=== PATIENT | female | born 1930 | race Caucasian/White ===

== ENCOUNTER 2017-11-09 10:27 | Inpatient (IN) | payer MEDICARE ==
[2017-11-09] MEDS: Carvedilol 3.125 MG TAB PO SCH (20:42)
[2017-11-10] MEDS: traMADol HCl 50 MG TAB PO PRN ×2 (01:05→22:32)
--- NOTE | 2017-11-10 03:04 | HP ---
DATE OF ADMISSION: 11/09/2017 ATTENDING: Nela Angulo M.D. PREVIOUS PRIMARY CARE PHYSICIAN: in [place]. NEW PRIMARY CARE PHYSICIAN: Pending appointment with Dr. Briones in [place]. ORTHOPEDICS: Dr. Behzad Jarquin in [place] [facility] [place]. REASON FOR ADMISSION: Skilled Rehabilitation in [place] [facility] post- surgery. HISTORY OF PRESENT ILLNESS: This is an 87-year-old female who was initially admitted to [facility] in [place] on 10/24/2017 after several falls and reported left ankle pain. She was diagnosed with displaced fracture tuberosity of the left calcaneus. The patient underwent repair. The patient was subsequently transferred to [facility] on 10/25/2017 and was seen by Dr. Clark. She was medically managed for closed displaced fracture of tuberosity of the left calcaneus status post fall. Of note, the patient also reports multiple pain mostly of her right knee, which she reported has a severe osteoarthritis. The patient is also complaining of left foot pain, lower extremity pain, moderate swelling in the foot and ankle, decreased range of motion to the left foot and ankle. She has been using rolling walker at home prior to admission. The patient has been nonweightbearing on her left lower extremity. She completed her inpatient rehabilitation from [facility], but deemed to be generally weak with decreased strength and endurance. She remains to be at risk for fall, thus she was transferred to [facility] to continue therapy prior to going back to the home environment The patient told me upon admission that she is not safe to return home as she needs some more strengthening of her arms and right lower extremity. She went back to Ortho yesterday for post-op followup and was allowed to start weight toe to touch to transfer in the left lower extremities and was prescribed with left boot that she needs to wear all the time except when she is sleeping.No other issues reported by patient at this time. There was no family members present on assessment. PAST MEDICAL HISTORY: CAD, CHF, depression, hypertension, osteoarthritis, urinary incontinence, history of MD. Other medical history includes hepatitis, history of blood transfusion, GI bleed, and SOB. PAST SURGICAL HISTORY: Appendectomy, cataract surgery, PTCA/stent, tonsillectomy and other surgical history include right ankle fracture surgery, bunionectomy, left closed shoulder manipulation and skin cancer excision. ALLERGIES: SULFA, reaction none documented. MEDICATIONS: Carvedilol 3.125 mg p.o. b.i.d., Vitamin D3 of 2000 units p.o. daily, fluoxetine 20 mg p.o. daily, furosemide 20 mg p.o. daily, Levaquin 250 mg p.o. daily, losartan 50 mg p.o. daily, potassium chloride 10 mEq p.o. daily, tramadol 50 mg p.o. q.i.d. p.r.n. for pain. SOCIAL HISTORY: Denies any history of tobacco, drug or EtOH use. Living condition: The patient lives initially by herself in [place], now currently lives with her daughter in one mihir home with a ramp to enter. The patient was ambulating independently with rolling walker prior to this hospitalization. She needs assistance with ADLs and dressing. She was previously receiving home health services from [facility]. An aide helped her with bathing twice weekly and patient had been set up to start PT with home health, but had not been done yet. CURRENT ADLS: The patient is nonweightbearing of left lower extremity except for toe touch for transfer. She is not in any pain. The patient is minimum assist for bed mobility and moderate assist for ADLs and dressing. The patient reports that she is unable to stand secondary to arthritis in her right knee as well as her inability to maintain her nonweightbearing status in left lower extremity. She has not been ambulatory since surgery on 10/24/2017. The patient was able to sit with standby assist per records Per therapy notes, patient has remains to have decreased left lower extremity strength, decreased endurance, decreased balance and gait deviations. Her primary space controller which is her daughter is also in a wheelchair has limited ability to take care of her at home. Otherwise, she has a highly supportive family. REVIEW OF SYSTEMS: General: Denies fever or chills. Reports fatigue and general weakness. HEENT: No acute visual changes or hearing changes. Respiratory: No shortness of breath, pain with breathing, sputum production, bloody sputum, or wheezing. Cardiac: No chest pain, dyspnea on exertion, paroxysmal nocturnal dyspnea. Genitourinary: No dysuria, hematuria, frequency , urgency. Reports intermittent incontinence secondary to gait abnormality, not making it on time. Musculoskeletal: Reports acute and chronic intermittent joint pains as per HPI. Neuro: No focal numbness, focal weakness , fixed tremors or seizures. Psych: Reports anxiety, depression. No hallucinations. No suicidal thoughts or insomnia. Hematology: Reports easy bruising. No lymphadenopathy. Skin: No rashes, no lesions, no history of nonhealing ulcers. PHYSICAL EXAMINATION: VITAL SIGNS: Blood pressure 149/67, temperature 97, O2 sats 96% on room air, respirations 20, pulse rate 63. GENERAL: The patient is awake, alert, oriented x3, not in acute distress, comfortably resting in bedside chair. HEENT: Normocephalic, atraumatic. PERRL, intact EOM. Anicteric sclera. Oral mucosa is moist. NECK: Supple. No LAD. Full range of motion, no swelling, no JVD, no bruit. CHEST: Normal excursion, clear to auscultation bilaterally. HEART: RRR. Normal S1 and S2. ABDOMEN: Flat, soft, normoactive bowel sounds, nondistended, nontender. No rebound, no guarding. Negative CVA tenderness bilaterally. EXTREMITIES: Left lower extremity is wearing boots. No significant erythema. Range of motion is limited secondary to pain and discomfort. Right lower extremity is grossly normal looking. NEUROLOGIC: Nonfocal. DTRs 2+. Gait unsteady. PSYCHIATRIC: Appears calm with appropriate demeanor and affect. SKIN: Intact. No rashes. Positive superficial hematoma in both upper extremities. ASSESSMENT: 1. Physical deconditioning. 2. General weakness. 3. Fracture of the calcaneus, left, closed, s/p ankle repair. 4. Urinary tract infection. 5. Congestive heart failure. 6. Depression. 7. Hypertension. 8. Anxiety. 9. Abnormality of gait and mobility secondary to imbalance. PLAN: 1. The patient was admitted to [facility] for skilled rehabilitation. PT, OT evaluation and treatment. 2. Medications to continue all current medications as per transfer list. 3. Deep venous thrombosis prophylaxis with SCD. 4. Fall precautions. 5. Follow up with Ortho on 12/14/2017 or as previously scheduled. Estimated length of stay 3-4 weeks. DISPOSITION: Home with the daughter who acts as a primary space controller.Patient may need an extra space controller upon discharge and family will start arranging for this ae per my conversation with her daughter on the phone. The patient will be needing home health at home as well. CODE STATUS: The patient reports FULL CODE. This was confirmed with her POA surrogate decision maker Mini Rivera/daughter on the phone. RUFINA
[2017-11-10] MEDS: FLUoxetine HCl 20 MG CAP PO SCH (08:48)
[2017-11-10] MEDS: Furosemide 20 MG TAB PO SCH (08:48)
[2017-11-10] MEDS: Carvedilol 3.125 MG TAB PO SCH ×2 (08:48→20:15)
[2017-11-10] MEDS: Potassium Chloride 10 MEQ TAB PO SCH (08:48)
[2017-11-10] MEDS: Losartan 25 MG TAB PO SCH (08:48)
[2017-11-11] MEDS: traMADol HCl 50 MG TAB PO PRN ×2 (07:32→09:05)
[2017-11-11] MEDS: Potassium Chloride 10 MEQ TAB PO SCH (09:07)
[2017-11-11] MEDS: FLUoxetine HCl 20 MG CAP PO SCH (09:07)
[2017-11-11] MEDS: Losartan 25 MG TAB PO SCH (09:07)
[2017-11-11] MEDS: Furosemide 20 MG TAB PO SCH (09:08)
[2017-11-11] MEDS: Carvedilol 3.125 MG TAB PO SCH ×2 (09:08→21:38)
[2017-11-12] MEDS: Carvedilol 3.125 MG TAB PO SCH ×2 (08:42→20:20)
[2017-11-12] MEDS: FLUoxetine HCl 20 MG CAP PO SCH (08:42)
[2017-11-12] MEDS: Furosemide 20 MG TAB PO SCH (08:42)
[2017-11-12] MEDS: Losartan 25 MG TAB PO SCH (08:43)
[2017-11-12] MEDS: Potassium Chloride 10 MEQ TAB PO SCH (08:43)
[2017-11-12] MEDS: traMADol HCl 50 MG TAB PO PRN ×2 (11:59→22:13)
[2017-11-12] MEDS ORDERED: Betamethasone 0.1% Cream 15 GM TUBE TOP PRN (19:53)
[2017-11-13] MEDS: Losartan 25 MG TAB PO SCH (08:06)
[2017-11-13] MEDS: Potassium Chloride 10 MEQ TAB PO SCH (08:06)
[2017-11-13] MEDS: FLUoxetine HCl 20 MG CAP PO SCH (08:06)
[2017-11-13] MEDS: Furosemide 20 MG TAB PO SCH (08:07)
[2017-11-13] MEDS: Carvedilol 3.125 MG TAB PO SCH ×2 (08:07→20:10)
[2017-11-13] MEDS: traMADol HCl 50 MG TAB PO PRN (08:08)
[2017-11-14] MEDS: traMADol HCl 50 MG TAB PO PRN (07:07)
[2017-11-14] MEDS: Furosemide 20 MG TAB PO SCH (08:05)
[2017-11-14] MEDS: Carvedilol 3.125 MG TAB PO SCH ×2 (08:05→20:14)
[2017-11-14] MEDS: Losartan 25 MG TAB PO SCH (08:05)
[2017-11-14] MEDS: FLUoxetine HCl 20 MG CAP PO SCH (08:05)
[2017-11-14] MEDS: Potassium Chloride 10 MEQ TAB PO SCH (08:05)
[2017-11-15] MEDS: traMADol HCl 50 MG TAB PO PRN (07:49)
[2017-11-15] MEDS: FLUoxetine HCl 20 MG CAP PO SCH (08:26)
[2017-11-15] MEDS: Potassium Chloride 10 MEQ TAB PO SCH (08:26)
[2017-11-15] MEDS: Furosemide 20 MG TAB PO SCH (08:26)
[2017-11-15] MEDS: Carvedilol 3.125 MG TAB PO SCH ×2 (08:26→20:08)
[2017-11-15] MEDS: Losartan 25 MG TAB PO SCH (08:26)
[2017-11-16] MEDS: Potassium Chloride 10 MEQ TAB PO SCH (08:52)
[2017-11-16] MEDS: Carvedilol 3.125 MG TAB PO SCH ×2 (08:52→20:18)
[2017-11-16] MEDS: Losartan 25 MG TAB PO SCH (08:52)
[2017-11-16] MEDS: FLUoxetine HCl 20 MG CAP PO SCH (08:52)
[2017-11-16] MEDS: Furosemide 20 MG TAB PO SCH (08:52)
[2017-11-16] MEDS: traMADol HCl 50 MG TAB PO PRN (20:18)
[2017-11-17] MEDS: Losartan 25 MG TAB PO SCH (08:39)
[2017-11-17] MEDS: Furosemide 20 MG TAB PO SCH (08:39)
[2017-11-17] MEDS: Carvedilol 3.125 MG TAB PO SCH ×2 (08:40→20:23)
[2017-11-17] MEDS: FLUoxetine HCl 20 MG CAP PO SCH (08:40)
[2017-11-17] MEDS: Potassium Chloride 10 MEQ TAB PO SCH (08:40)
[2017-11-17] MEDS: traMADol HCl 50 MG TAB PO PRN ×2 (14:36→23:32)
[2017-11-17 19:57] LABS: Bilirubin Negative (Negative); Blood, Urine Negative (Negative); Glucose, Urine (Dipstick) Negative (Negative); Leukocyte Trace (Negative); Nitrite Negative (Negative); Protein, Urine (Dipstick) Negative (Neg-Trace); Specific Gravity, Urine 1.015 (1.005-1.030); Urobilinogen 0.2 mg/dL (0.2-1.0); pH, Urine 5.5 (5.0-9.0)
[2017-11-17 20:12] LABS: Clarity Hazy (Clear); RBC/HPF 0-3 HPF (0-3); WBC/HPF 21-50 HPF (0-3)
[2017-11-17 20:13] LABS: Bacteria/HPF 3+ HPF (None Seen)
[2017-11-18] MEDS: Losartan 25 MG TAB PO SCH (08:35)
[2017-11-18] MEDS: Carvedilol 3.125 MG TAB PO SCH ×2 (08:35→20:29)
[2017-11-18] MEDS: FLUoxetine HCl 20 MG CAP PO SCH (08:35)
[2017-11-18] MEDS: Furosemide 20 MG TAB PO SCH (08:35)
[2017-11-18] MEDS: Potassium Chloride 10 MEQ TAB PO SCH (08:35)
[2017-11-18] MEDS: traMADol HCl 50 MG TAB PO PRN (08:42)
[2017-11-18] MEDS: Cephalexin 500 MG CAP PO SCH (20:29)
[2017-11-18] MEDS: Nystatin Powder 15 GM BOT TOP SCH (20:30)
[2017-11-19] MEDS: Cephalexin 500 MG CAP PO SCH ×2 (08:00→20:30)
[2017-11-19] MEDS: Potassium Chloride 10 MEQ TAB PO SCH (08:00)
[2017-11-19] MEDS: FLUoxetine HCl 20 MG CAP PO SCH (08:00)
[2017-11-19] MEDS: Carvedilol 3.125 MG TAB PO SCH ×2 (08:01→20:30)
[2017-11-19] MEDS: Furosemide 20 MG TAB PO SCH (08:01)
[2017-11-19] MEDS: Losartan 25 MG TAB PO SCH (08:01)
[2017-11-19] MEDS: Nystatin Powder 15 GM BOT TOP SCH ×2 (08:01→20:30)
[2017-11-19] MEDS: traMADol HCl 50 MG TAB PO PRN (13:55)
[2017-11-20] MEDS: Furosemide 20 MG TAB PO SCH (08:25)
[2017-11-20] MEDS: Potassium Chloride 10 MEQ TAB PO SCH (08:25)
[2017-11-20] MEDS: Cephalexin 500 MG CAP PO SCH (08:25)
[2017-11-20] MEDS: Carvedilol 3.125 MG TAB PO SCH ×2 (08:25→20:51)
[2017-11-20] MEDS: Losartan 25 MG TAB PO SCH (08:25)
[2017-11-20] MEDS: FLUoxetine HCl 20 MG CAP PO SCH (08:26)
[2017-11-20] MEDS: Nystatin Powder 15 GM BOT TOP SCH ×2 (08:30→20:51)
[2017-11-20] MEDS: traMADol HCl 50 MG TAB PO PRN (15:43)
[2017-11-21] MEDS: Losartan 25 MG TAB PO SCH (08:45)
[2017-11-21] MEDS: FLUoxetine HCl 20 MG CAP PO SCH (08:45)
[2017-11-21] MEDS: Nystatin Powder 15 GM BOT TOP SCH ×2 (08:46→20:53)
[2017-11-21] MEDS: Carvedilol 3.125 MG TAB PO SCH ×2 (08:46→20:53)
[2017-11-21] MEDS: Potassium Chloride 10 MEQ TAB PO SCH (08:46)
[2017-11-21] MEDS: Furosemide 20 MG TAB PO SCH (08:46)
[2017-11-21] MEDS: traMADol HCl 50 MG TAB PO PRN (10:56)
[2017-11-22] MEDS: traMADol HCl 50 MG TAB PO PRN (05:25)
[2017-11-22] MEDS: Furosemide 20 MG TAB PO SCH (08:20)
[2017-11-22] MEDS: FLUoxetine HCl 20 MG CAP PO SCH (08:20)
[2017-11-22] MEDS: Nystatin Powder 15 GM BOT TOP SCH ×2 (08:20→20:32)
[2017-11-22] MEDS: Losartan 25 MG TAB PO SCH (08:21)
[2017-11-22] MEDS: Potassium Chloride 10 MEQ TAB PO SCH (08:21)
[2017-11-22] MEDS: Carvedilol 3.125 MG TAB PO SCH ×2 (08:21→20:32)
[2017-11-23] MEDS: traMADol HCl 50 MG TAB PO PRN ×3 (00:22→20:24)
[2017-11-23] MEDS: FLUoxetine HCl 20 MG CAP PO SCH (07:24)
[2017-11-23] MEDS: Furosemide 20 MG TAB PO SCH (07:25)
[2017-11-23] MEDS: Losartan 25 MG TAB PO SCH (07:25)
[2017-11-23] MEDS: Nystatin Powder 15 GM BOT TOP SCH ×2 (07:26→20:23)
[2017-11-23] MEDS: Carvedilol 3.125 MG TAB PO SCH ×2 (07:26→20:23)
[2017-11-23] MEDS: Potassium Chloride 10 MEQ TAB PO SCH (07:26)
[2017-11-24] MEDS: traMADol HCl 50 MG TAB PO PRN ×2 (07:22→22:40)
[2017-11-24] MEDS: FLUoxetine HCl 20 MG CAP PO SCH (08:23)
[2017-11-24] MEDS: Carvedilol 3.125 MG TAB PO SCH ×2 (08:23→20:09)
[2017-11-24] MEDS: Losartan 25 MG TAB PO SCH (08:23)
[2017-11-24] MEDS: Nystatin Powder 15 GM BOT TOP SCH ×2 (08:24→20:09)
[2017-11-24] MEDS: Potassium Chloride 10 MEQ TAB PO SCH (08:24)
[2017-11-24] MEDS: Furosemide 20 MG TAB PO SCH (08:25)
[2017-11-25] MEDS: traMADol HCl 50 MG TAB PO PRN ×2 (07:17→20:19)
[2017-11-25] MEDS: Potassium Chloride 10 MEQ TAB PO SCH (08:04)
[2017-11-25] MEDS: Nystatin Powder 15 GM BOT TOP SCH ×2 (08:04→20:23)
[2017-11-25] MEDS: FLUoxetine HCl 20 MG CAP PO SCH (08:05)
[2017-11-25] MEDS: Losartan 25 MG TAB PO SCH (08:05)
[2017-11-25] MEDS: Carvedilol 3.125 MG TAB PO SCH ×2 (08:05→20:18)
[2017-11-25] MEDS: Furosemide 20 MG TAB PO SCH (08:05)
[2017-11-26] MEDS: Potassium Chloride 10 MEQ TAB PO SCH (09:00)
[2017-11-26] MEDS: Losartan 25 MG TAB PO SCH (09:00)
[2017-11-26] MEDS: Furosemide 20 MG TAB PO SCH (09:00)
[2017-11-26] MEDS: Carvedilol 3.125 MG TAB PO SCH ×2 (09:00→20:31)
[2017-11-26] MEDS: Nystatin Powder 15 GM BOT TOP SCH ×2 (09:01→20:31)
[2017-11-26] MEDS: FLUoxetine HCl 20 MG CAP PO SCH (09:01)
[2017-11-26] MEDS: traMADol HCl 50 MG TAB PO PRN ×2 (20:30→22:40)
[2017-11-27] MEDS: traMADol HCl 50 MG TAB PO PRN ×2 (07:43→20:29)
[2017-11-27] MEDS: Furosemide 20 MG TAB PO SCH (09:04)
[2017-11-27] MEDS: Losartan 25 MG TAB PO SCH (09:04)
[2017-11-27] MEDS: FLUoxetine HCl 20 MG CAP PO SCH (09:04)
[2017-11-27] MEDS: Nystatin Powder 15 GM BOT TOP SCH ×2 (09:05→21:50)
[2017-11-27] MEDS: Carvedilol 3.125 MG TAB PO SCH ×2 (09:05→20:26)
[2017-11-27] MEDS: Potassium Chloride 10 MEQ TAB PO SCH (09:05)
[2017-11-28] MEDS: traMADol HCl 50 MG TAB PO PRN ×2 (07:45→20:11)
[2017-11-28] MEDS: Nystatin Powder 15 GM BOT TOP SCH ×2 (08:00→20:12)
[2017-11-28] MEDS: Potassium Chloride 10 MEQ TAB PO SCH (08:00)
[2017-11-28] MEDS: Losartan 25 MG TAB PO SCH (08:00)
[2017-11-28] MEDS: FLUoxetine HCl 20 MG CAP PO SCH (08:00)
[2017-11-28] MEDS: Carvedilol 3.125 MG TAB PO SCH ×2 (08:00→20:12)
[2017-11-28] MEDS: Furosemide 20 MG TAB PO SCH (08:00)
[2017-11-29] MEDS: traMADol HCl 50 MG TAB PO PRN ×2 (04:19→19:38)
[2017-11-29] MEDS: Potassium Chloride 10 MEQ TAB PO SCH (09:09)
[2017-11-29] MEDS: Losartan 25 MG TAB PO SCH (09:10)
[2017-11-29] MEDS: FLUoxetine HCl 20 MG CAP PO SCH (09:10)
[2017-11-29] MEDS: Furosemide 20 MG TAB PO SCH (09:10)
[2017-11-29] MEDS: Nystatin Powder 15 GM BOT TOP SCH ×2 (09:10→20:19)
[2017-11-29] MEDS: Carvedilol 3.125 MG TAB PO SCH ×2 (09:10→20:19)
[2017-11-30] MEDS: traMADol HCl 50 MG TAB PO PRN ×2 (08:30→18:55)
[2017-11-30] MEDS: Nystatin Powder 15 GM BOT TOP SCH ×2 (08:31→20:05)
[2017-11-30] MEDS: Losartan 25 MG TAB PO SCH (08:31)
[2017-11-30] MEDS: Furosemide 20 MG TAB PO SCH (08:31)
[2017-11-30] MEDS: Potassium Chloride 10 MEQ TAB PO SCH (08:31)
[2017-11-30] MEDS: FLUoxetine HCl 20 MG CAP PO SCH (08:31)
[2017-11-30] MEDS: Carvedilol 3.125 MG TAB PO SCH ×2 (08:31→20:03)
[2017-12-01] MEDS: Losartan 25 MG TAB PO SCH (08:41)
[2017-12-01] MEDS: Furosemide 20 MG TAB PO SCH (08:42)
[2017-12-01] MEDS: Nystatin Powder 15 GM BOT TOP SCH ×2 (08:42→19:17)
[2017-12-01] MEDS: Potassium Chloride 10 MEQ TAB PO SCH (08:42)
[2017-12-01] MEDS: FLUoxetine HCl 20 MG CAP PO SCH (08:42)
[2017-12-01] MEDS: Carvedilol 3.125 MG TAB PO SCH ×2 (08:42→19:16)
[2017-12-01] MEDS: traMADol HCl 50 MG TAB PO PRN ×2 (19:15→23:12)
[2017-12-02] MEDS: Losartan 25 MG TAB PO SCH (08:24)
[2017-12-02] MEDS: traMADol HCl 50 MG TAB PO PRN ×2 (08:24→19:24)
[2017-12-02] MEDS: Potassium Chloride 10 MEQ TAB PO SCH (08:25)
[2017-12-02] MEDS: FLUoxetine HCl 20 MG CAP PO SCH (08:25)
[2017-12-02] MEDS: Carvedilol 3.125 MG TAB PO SCH ×2 (08:25→20:14)
[2017-12-02] MEDS: Furosemide 20 MG TAB PO SCH (08:25)
[2017-12-02] MEDS: Nystatin Powder 15 GM BOT TOP SCH ×2 (08:26→20:14)
--- NOTE | 2017-12-02 10:09 | RAD ---
AP PELVIS 1 VIEW: Date: 12/02/17 HISTORY: 87-year-old female with left-sided pain without trauma. FINDINGS: There is diffuse bone demineralization. Mild degenerative change of both hip joints and SI joints. No overt acute fracture or focal bone lesion. IMPRESSION: Bone demineralization with degenerative and osteoarthrosis changes without other acute process. POS: [facility]
--- NOTE | 2017-12-02 10:10 | RAD ---
TWO VIEWS LEFT HIP: HISTORY: Left hip pain without trauma. FINDINGS: AP and frogleg views left hip are obtained. Two views left hip demonstrate no evidence of left hip fractures, subluxations, or bony lesions. IMPRESSION: Normal 2 views left hip. POS: [facility]
--- NOTE | 2017-12-02 10:12 | RAD ---
THREE VIEWS OF THE LEFT KNEE: DATE: 12/02/17. COMPARISON: None. HISTORY: Pain without trauma. FINDINGS: There is moderate/severe lateral compartment narrowing with prominent subchondral sclerosis and later al osteophyte formation of the lateral femoral condyle and the lateral tibial plateau. There is mode rate medial compartment narrowing with chondrocalcinosis and osteophyte formation of the medial tibia l plateau. There is prominent patellofemoral joint space narrowing and posterior patellar osteophyte formation. No significant knee joint effusion, displaced fracture, or evidence of dislocation. IMPRESSION: Prominent multicompartment degenerative joint disease. No acute osseous abnormality. POS: [facility]
[2017-12-02] MEDS ORDERED: methylPREDNISolone 4 mg Tablet PO SCH ×2 (17:45→21:00)
[2017-12-02] MEDS ORDERED: CONFIRM ALL DAY 1 DOSES ARE TIMED FOR DAY 1 FS SCH (18:15)
[2017-12-03 01:28] VITALS: BMI 26.6
[2017-12-03] MEDS ORDERED: methylPREDNISolone 4 mg Tablet PO SCH ×3 (08:00→21:00)
[2017-12-03] MEDS ORDERED: CONFIRM ALL DAY 1 DOSES ARE TIMED FOR DAY 1 FS SCH (08:00)
[2017-12-03] MEDS: Furosemide 20 MG TAB PO SCH (08:17)
[2017-12-03] MEDS: Potassium Chloride 10 MEQ TAB PO SCH (08:18)
[2017-12-03] MEDS: Losartan 25 MG TAB PO SCH (08:18)
[2017-12-03] MEDS: FLUoxetine HCl 20 MG CAP PO SCH (08:18)
[2017-12-03] MEDS: Carvedilol 3.125 MG TAB PO SCH ×2 (08:18→20:40)
[2017-12-03] MEDS: Nystatin Powder 15 GM BOT TOP SCH ×2 (08:18→20:50)
[2017-12-03] MEDS: methylPREDNISolone 4 mg Tablet PO SCH ×4 (11:33→20:44)
[2017-12-04] MEDS ORDERED: methylPREDNISolone 4 mg Tablet PO SCH ×2 (08:00→21:00)
[2017-12-04] MEDS: Potassium Chloride 10 MEQ TAB PO SCH (08:16)
[2017-12-04] MEDS: FLUoxetine HCl 20 MG CAP PO SCH (08:16)
[2017-12-04] MEDS: Losartan 25 MG TAB PO SCH (08:18)
[2017-12-04] MEDS: Furosemide 20 MG TAB PO SCH (08:18)
[2017-12-04] MEDS: methylPREDNISolone 4 mg Tablet PO SCH ×3 (08:18→17:12)
[2017-12-04] MEDS: Nystatin Powder 15 GM BOT TOP SCH ×2 (08:19→20:24)
[2017-12-04] MEDS: Carvedilol 3.125 MG TAB PO SCH ×2 (08:19→20:18)
[2017-12-04] MEDS: traMADol HCl 50 MG TAB PO PRN (19:03)
[2017-12-05] MEDS ORDERED: methylPREDNISolone 4 mg Tablet PO SCH (08:00)
[2017-12-05] MEDS: Carvedilol 3.125 MG TAB PO SCH ×2 (08:05→20:47)
[2017-12-05] MEDS: traMADol HCl 50 MG TAB PO PRN ×2 (08:05→20:45)
[2017-12-05] MEDS: methylPREDNISolone 4 mg Tablet PO SCH ×4 (08:05→20:46)
[2017-12-05] MEDS: Potassium Chloride 10 MEQ TAB PO SCH (08:06)
[2017-12-05] MEDS: Furosemide 20 MG TAB PO SCH (08:06)
[2017-12-05] MEDS: FLUoxetine HCl 20 MG CAP PO SCH (08:06)
[2017-12-05] MEDS: Losartan 25 MG TAB PO SCH (08:06)
[2017-12-05] MEDS: Nystatin Powder 15 GM BOT TOP SCH ×2 (08:07→20:47)
[2017-12-06] MEDS: traMADol HCl 50 MG TAB PO PRN (07:49)
[2017-12-06] MEDS: Losartan 25 MG TAB PO SCH (07:50)
[2017-12-06] MEDS: Furosemide 20 MG TAB PO SCH (07:51)
[2017-12-06] MEDS: methylPREDNISolone 4 mg Tablet PO SCH ×4 (07:51→17:34)
[2017-12-06] MEDS: Carvedilol 3.125 MG TAB PO SCH (07:51)
[2017-12-06] MEDS: FLUoxetine HCl 20 MG CAP PO SCH (07:52)
[2017-12-06] MEDS: Potassium Chloride 10 MEQ TAB PO SCH (07:52)
[2017-12-06] MEDS: Nystatin Powder 15 GM BOT TOP SCH (07:53)
[2017-12-06] MEDS ORDERED: methylPREDNISolone 4 mg Tablet PO SCH (08:00)
[2017-12-06 16:33] VITALS: BP 149/72; TEMP 97.3
[2017-12-07] MEDS ORDERED: methylPREDNISolone 4 mg Tablet PO SCH ×2 (08:00)
--- NOTE | 2017-12-07 22:21 | DIS ---
DATE OF ADMISSION: 11/09/2017 DATE OF DISCHARGE: 12/06/2017 ATTENDING: Dr. Angulo. Orthopedic, Dr. Behzad Jarquin in [facility] REASON FOR ADMISSION: Skilled Rehabilitation in [facility] bed post-surgery. DISCHARGE DIAGNOSES: 1. Physical deconditioning/general weakness. 2. Closed fracture of the left calcaneus status post ankle repair. 3. Urinary tract infection, treated. 4. Abnormality of gait and mobility secondary to imbalance. 5. Degenerative joint disease of the left knee. SECONDARY DIAGNOSES: Congestive heart failure, depression, anxiety, hypertension. DISPOSITION: Home with family. CONDITION ON DISCHARGE: Stable. DISCHARGE MEDICATIONS: 1. Medrol Denny 4 mg 1 tablet b.i.d. x2 doses more, then stop. 2. Carvedilol 3.125 mg p.o. b.i.d. 3. Vitamin D 3000 units p.o. daily. 4. Fluoxetine 20 mg p.o. daily. 5. Furosemide 20 mg p.o. daily. 6. Losartan 50 mg p.o. daily. 7. Potassium chloride 10 mEq p.o. daily. 8. Tramadol 50 mg p.o. p.o. b.i.d. p.r.n. for pain. 9. Acetaminophen 650 mg p.o. q.4 hours p.r.n. DIET: AHA. ACTIVITIES: Full weightbearing with the use of leg boot in the left leg. To use rolling walker for assistance at all times. FOLLOWUP: With new PCP, Dr. Bijan Knapp in [place] [facility] on 12/01/2017 at 4:30 p.m. Foll ow up with Dr. Jarquin for ortho care on 01/03/2018 at 10:30 a.m. To resume home health services for PT, OT, and residential. HISTORY OF PRESENT ILLNESS AND HOSPITAL COURSE: Ms. Mckenna is a very pleasant 87-year-old female who was admitted in [facility] bed on 11/09/2017 from [facility] in [facility] secondary to deconditioning/general weakness. Patient was apparently diagnosed with displ aced fracture tuberosity of the left calcaneus. She underwent ankle repair and was subsequently thibodeaux sferred in [facility] in 10/25/2017 under the care of Dr. Clark. She was m edically managed for closed displaced fracture tuberosity of the left calcaneus status post fall at [facility]. The patient has reported to have multiple knee pain due to severe osteoarthritis. During her rehabilitation period, she has had x-ray of the left knee secondary to progressively persi stent pain mostly at night, but pain eventually radiates to the hip. She was treated with Medrol Denny during her [facility] hospital stay. Patient reports significant improvement of pain with the ora l steroids. She followed up twice with Dr. Jarquin post-surgery. One was on 11/09/2017 prior to tr ansfer to [facility] bed. At that time, she was recommended to start toe touch for transfers . She started wearing leg boot at that time as well. The patient markedly improved in her overall f unctional status over the course. When she followed up on 12/06/[address] Jarquin, the patient was ordered for weightbearing status and left boot was changed to more sturdy tight. The patient was able to walk using the boot without significant pain. She has been full [facility]bearing [facility] and decided to go home. The patient's daughter who acts as a primary caretak er together with her granddaughter here in the hospital prior to discharge and were comfortable and e xpressed that they are very comfortable taking patient back home at this point as requested. Patient to complete her oral steroid for the last dose on 12/07/2017. She was also given a copy of her rece nt x-rays for the knee to be coordinated with Dr. Jarquin on their followup appointment for further evaluation if pain in the left knee is persistent. Vital signs prior to discharge, blood pressure 14 9/72, temperature 97.3, pulse 73, respirations 20, O2 saturation 94% at room air, weight 5 pounds and 8 ounces. X-ray of the left knee on 12/02/2017 showed prominent multi-compartment degenerative joint disease. No acute osseous abnormality. X-ray of the pelvis on 12/02/2017, normal two views of left hip. X-ra ys of the pelvis on 12/02/2017 showed bone demineralization with degenerative and osteoarthrosis peña ges without other acute process. Time spent in this discharge 35 minutes in examination patient and coordinating care.
[2017-12-08] MEDS ORDERED: methylPREDNISolone 4 mg Tablet PO SCH (08:00)
== END 2017-12-06 17:40 | disposition home or self-care (01) | DRG 948 ==
LOC: MADMS 12:28
PROVIDERS: ADMIT Family Medicine; ATTEND Family Medicine
DX: R53.1 Weakness (principal); N39.0 Urinary tract infection, site not specified; R53.83 Other fatigue; I25.10 Atherosclerotic heart disease of native coronary artery without angina pectoris; I11.0 Hypertensive heart disease with heart failure; I50.9 Heart failure, unspecified; F32.9 Major depressive disorder, single episode, unspecified; S92.042D Displaced other fracture of tuberosity of left calcaneus, subsequent encounter for fracture with routine healing; F41.9 Anxiety disorder, unspecified; R26.9 Unspecified abnormalities of gait and mobility; M17.12 Unilateral primary osteoarthritis, left knee; I25.2 Old myocardial infarction; Z88.2 Allergy status to sulfonamides; Z79.899 Other long term (current) drug therapy; Z95.5 Presence of coronary angioplasty implant and graft; W18.30XD Fall on same level, unspecified, subsequent encounter
CPT/HCPCS: 72170; 81001; 87086; G8978-GP-CM; G8979-GP-CK; G8987-GO-CL; G8988-GO-CH